=== PATIENT | male | born 1980 | race Caucasian/White ===

== ENCOUNTER → 2016-10-24 | Outpatient (CLI) | payer OTHER ==
[~2016-10-24] MED LIST: ATROPINE INJECTION 1 MG/10 ML SYR (ABBOTT) ONE; NS IV 1000 ML 1,000 ML ONE
== END ==
LOC: CARD 08:35
PROVIDERS: ATTEND Internal Medicine Cardiovascular Disease
DX: Z87.898 Personal history of other specified conditions (principal)
CPT/HCPCS: 93306

== ENCOUNTER → 2016-11-14 | Outpatient (CLI) | payer OTHER ==
[2016-11-14] VITALS (29 sets, daily range): BP systolic 119–199; BP diastolic 85–113
[~2016-11-14] VITALS: Ht 193 cm; Wt 139.7 kg
--- NOTE | 2016-11-14 10:49 | Cardiology Tilt Table Test ---
Cardiology-Tilt Table Test Tilt Table Test Date 11/14/16 Baseline Vitals Vital Signs Date Time Temp Pulse Resp B/P (MAP) Pulse Ox O2 Delivery O2 Flow Rate FiO2 11/14/16 09:42 91 136/92 94 Vital Signs VS - Last 72 Hours, by Label 11/14/16 11/14/16 11/14/16 11/14/16 09:42 09:53 09:54 09:55 Pulse 91 101 97 100 B/P (MAP) 136/92 124/100 132/113 131/110 Pulse Ox 94 97 96 11/14/16 11/14/16 11/14/16 11/14/16 09:56 09:57 09:58 09:59 Pulse 102 104 103 104 B/P (MAP) 130/99 127/95 123/97 131/105 Pulse Ox 96 96 96 96 11/14/16 11/14/16 11/14/16 11/14/16 10:00 10:01 10:02 10:03 Pulse 106 107 106 111 B/P (MAP) 125/99 135/100 128/100 128/92 Pulse Ox 96 96 96 11/14/16 11/14/16 11/14/16 11/14/16 10:04 10:05 10:07 10:08 Pulse 96 98 101 124 B/P (MAP) 140/96 129/86 126/86 120/85 Pulse Ox 96 11/14/16 11/14/16 11/14/16 11/14/16 10:08 10:09 10:11 10:13 Pulse 103 127 128 135 B/P (MAP) 131/87 125/93 120/94 123/88 11/14/16 11/14/16 11/14/16 11/14/16 10:14 10:15 10:16 10:17 Pulse 126 127 133 131 B/P (MAP) 119/89 126/88 121/92 11/14/16 11/14/16 11/14/16 11/14/16 10:18 10:19 10:20 10:22 Pulse 132 123 128 130 B/P (MAP) 126/93 127/90 129/96 130/101 11/14/16 11/14/16 10:23 10:24 Pulse 132 115 B/P (MAP) 136/91 138/100 Patient was tilted to 75 degrees for [10] minutes, then returned to supine position, given [2] sublingual nitroglycerin tablets, then tilted again to 75 degrees for [15] minutes. During test, patient was: asymptomatic In Conclusion;: Negative Tilt Table Test Patient became slightly tachycardic during second stage, however, blood pressure remained stable and patient was asymptomatic. This is Camelia Pizano PA-C, acting as a scribe for Dr. Valentine. CAMELIA CASEY Nov 14, 2016 10:49
== END ==
LOC: CARD 08:57
PROVIDERS: ATTEND Physician Assistant
DX: R55 Syncope and collapse; Z68.37 Body mass index [BMI] 37.0-37.9, adult; E66.9 Obesity, unspecified; Z72.0 Tobacco use; R07.89 Other chest pain; I10 Essential (primary) hypertension
CPT/HCPCS: 93660

== ENCOUNTER 2016-11-27 19:46 | Outpatient (CLI) | payer OTHER | END 2016-11-28 04:10 | disposition home or self-care (01) | LOC: SLEEP 19:46 | PROVIDERS: ATTEND Internal Medicine Cardiovascular Disease | DX: I10 Essential (primary) hypertension; R06.83 Snoring; G47.10 Hypersomnia, unspecified ==